=== PATIENT | male | born 1950 | race Asian ===

== ENCOUNTER 2021-10-18 12:11 | Inpatient (IN) | payer MEDICARE, MEDICAID ==
[~2021-10-18] VITALS: Ht 167.6 cm; Wt 72.7 kg
[2021-10-18 14:43] LABS: BASOPHILS % (AUTO) 0.6 % (0.0-2.0); EOSINOPHILS % (AUTO) 0.5 % (1.0-6.0); HEMATOCRIT 34.1 % (41-53); HEMOGLOBIN 11.1 g/dL (13.5-17.5); LYMPHOCYTES # (AUTO) 1.4 K/uL (1.0-4.8); LYMPHOCYTES % (AUTO) 18.7 % (22.0-44.0); MEAN CORPUSCULAR HEMOGLOBIN 30.2 pg (26.0-34.0); MEAN CORPUSCULAR HGB CONC 32.6 G/dL (31.0-37.0); MEAN CORPUSCULAR VOLUME 93 fL (80-100); MONOCYTES # (AUTO) 0.7 K/uL (0.1-1.0); MONOCYTES % (AUTO) 9.6 % (2.0-9.0); NEUTROPHILS # (AUTO) 5.4 K/uL (1.8-7.7); NEUTROPHILS % (AUTO) 70.6 % (40.0-70.0); PLATELET COUNT (AUTO) 265 K/uL (150-450); RED BLOOD CELL COUNT(AUTO) 3.69 MIL/uL (4.50-5.90)
[2021-10-18 15:05] LABS: PROTHROMBIN TIME 10.3 SEC (9.4-11.6)
[2021-10-18 15:07] LABS: CALCIUM, TOTAL 9.5 mg/dL (8.8-10.5); CREATININE 2.25 mg/dL (0.60-1.30)
[2021-10-18 15:15] LABS: ALBUMIN 3.2 g/dL (3.4-5.0); BILIRUBIN,TOTAL 9.4 mg/dL (0.1-1.0); TOTAL PROTEIN, SERUM 7.8 g/dL (6.4-8.2)
[2021-10-18 15:16] LABS: APPEARANCE,URINE CLOUDY (CLEAR); GLUCOSE, URINE (UA) NEGATIVE (NEGATIVE); KETONES,URINE TRACE mg/dL (NEGATIVE); LEUKOCYTE ESTERASE ,URINE SMALL (NEGATIVE); NITRATE,URINE NEGATIVE (NEGATIVE); OCCULT BLOOD,URINE NEGATIVE (NEGATIVE); PROTEIN,URINE POS 1+ (NEGATIVE)
[2021-10-18 15:36] LABS: BILIRUBIN,URINE PRELIM. POSITIVE (NEGATIVE)
[2021-10-18 15:54] LABS: BACTERIA,URINE Few /HPF (None Seen); RBC,URINE 0-2 /HPF (0-2); SQUAMOUS EPITHELIAL CELL,UR Few /LPF (None Seen)
[2021-10-18 17:13] LABS: COVID AG,FIA SOURCE NASOPHARYNGEAL
[2021-10-18 18:21] LABS: ALBUMIN 3.2 g/dL (3.4-5.0); BILIRUBIN,DIRECT 8.2 mg/dL (0.00-0.20); BILIRUBIN,TOTAL 9.5 mg/dL (0.1-1.0); TOTAL PROTEIN, SERUM 7.9 g/dL (6.4-8.2)
[2021-10-18] MEDS ORDERED: PIPERACILLIN/TAZO 3.375 GM/D5W 50 ML IV ONE (20:15)
[2021-10-18] MEDS ORDERED: MELA10CA PO (22:50)
[2021-10-18] MEDS ORDERED: CETI-450 PO (22:50)
[2021-10-18] MEDS ORDERED: MACR100 PO (22:50)
[2021-10-18] MEDS ORDERED: CIPR-278 PO (22:50)
[2021-10-18] MEDS ORDERED: [UNRECOGNIZED DRUG - CODE] PO (22:50)
[2021-10-18] MEDS ORDERED: LINA72CA PO (22:50)
[2021-10-18] MEDS ORDERED: TAMS-13 PO (22:50)
[2021-10-18] MEDS ORDERED: FOLI0.8T9 PO (22:50)
[2021-10-18] MEDS ORDERED: [UNRECOGNIZED DRUG - OTHER] PO PRN (23:15)
[2021-10-18] MEDS ORDERED: ALBUTEROL SULFATE 2.5 MG/0.5 ML NEB SOLUTION NEB PRN (23:15)
[2021-10-18] MEDS ORDERED: BISACODYL 10 MG RECTAL RECTAL SUPPOSITORY PR PRN (23:15)
[2021-10-18] MEDS ORDERED: ZOLPIDEM TARTRATE 5 MG TABLET PO PRN (23:15)
[2021-10-18] MEDS ORDERED: IPRATROPIUM BROMIDE 0.5 MG/2.5 ML NEB SOLUTION NEB PRN (23:15)
[2021-10-18] MEDS ORDERED: MAGNESIUM HYDROXIDE SUSPENSION 30 ML UDCUP PO PRN (23:15)
[2021-10-18] MEDS: HEPARIN SODIUM,PORCINE 5,000 UNITS/ML VIAL SQ SCH (23:50)
[2021-10-19] MEDS ORDERED: OMEP20 PO (01:22)
[2021-10-19] MEDS ORDERED: AMLO-258 PO (01:22)
[2021-10-19] MEDS ORDERED: VITA1TAB22 PO (01:22)
[2021-10-19] MEDS ORDERED: FOLI-130 PO (01:22)
[2021-10-19] MEDS ORDERED: [UNRECOGNIZED DRUG - CODE] PO (01:22)
[2021-10-19] MEDS ORDERED: GLUC500T12 PO (01:22)
[2021-10-19] MEDS ORDERED: CALC260T16 PO (01:22)
[2021-10-19] MEDS: LINACLOTIDE 72 MCG CAPSULE PO SCH (05:51)
[2021-10-19] MEDS ORDERED: MELATONIN 5 MG TABLET PO PRN (07:00)
[2021-10-19 07:34] LABS: BASOPHILS % (AUTO) 0.7 % (0.0-2.0); EOSINOPHILS % (AUTO) 0.9 % (1.0-6.0); HEMATOCRIT 29.8 % (41-53); HEMOGLOBIN 10.2 g/dL (13.5-17.5); LYMPHOCYTES # (AUTO) 0.9 K/uL (1.0-4.8); LYMPHOCYTES % (AUTO) 13.2 % (22.0-44.0); MEAN CORPUSCULAR HEMOGLOBIN 31.2 pg (26.0-34.0); MEAN CORPUSCULAR HGB CONC 34.3 G/dL (31.0-37.0); MEAN CORPUSCULAR VOLUME 91 fL (80-100); MONOCYTES # (AUTO) 0.7 K/uL (0.1-1.0); MONOCYTES % (AUTO) 10.8 % (2.0-9.0); NEUTROPHILS % (AUTO) 74.4 % (40.0-70.0); PLATELET COUNT (AUTO) 207 K/uL (150-450); RED BLOOD CELL COUNT(AUTO) 3.28 MIL/uL (4.50-5.90); RED CELL DISTRIBUTION WIDTH 17.4 % (11.5-14.5)
[2021-10-19 07:49] LABS: ALBUMIN 2.8 g/dL (3.4-5.0); BILIRUBIN,TOTAL 9.9 mg/dL (0.1-1.0); CALCIUM, TOTAL 9.2 mg/dL (8.8-10.5); CREATININE 2.15 mg/dL (0.60-1.30); POTASSIUM 4.4 mmol/L (3.5-5.1)
[2021-10-19] MEDS: HEPARIN SODIUM,PORCINE 5,000 UNITS/ML VIAL SQ SCH ×2 (07:55→17:08)
[2021-10-19] MEDS: PANTOPRAZOLE SODIUM 40 MG/VIAL IVP SCH (08:40)
[2021-10-19] MEDS: DiphenhydrAMINE HCL 25 MG/10 ML SOLUTION UDCUP PO SCH (08:50)
[2021-10-19] MEDS: FOLIC ACID 0.4 MG TABLET PO SCH (08:51)
[2021-10-19] MEDS: TAMSULOSIN HCL 0.4 MG CAPSULE PO SCH ×2 (08:51→21:33)
[2021-10-19] MEDS: CIPROFLOXACIN HCL 500 MG TABLET PO SCH ×2 (08:51→21:33)
[2021-10-19] MEDS: NITROFURANTOIN/NITROFURAN MAC 100 MG CAPSULE [MACROBID] PO SCH ×2 (08:52→23:29)
[2021-10-19] MEDS: CETIRIZINE HCL 10 MG TABLET PO SCH (08:52)
[2021-10-19] MEDS ORDERED: FOLIC ACID 0.8 MG PO SCH (09:00)
[2021-10-19] MEDS ORDERED: IOTHALAMATE MEGLUMINE 600 MG/ML 50 ML VIAL IVP ONE (11:43)
[2021-10-19] MEDS ORDERED: DEXAMETHASONE SOD PHOS 4 MG/ML VIAL IVP ONE (12:00)
[2021-10-19] MEDS ORDERED: ONDANSETRON HCL 4 MG/2 ML VIAL IVP ONE (12:00)
[2021-10-19] MEDS ORDERED: PROPOFOL 1% 20 ML VIAL IVP ONE (12:00)
[2021-10-19] MEDS ORDERED: LIDOCAINE/PF 2% 5 ML VIAL IM ONE (12:00)
[2021-10-19] MEDS ORDERED: MIDAZOLAM HCL 2 MG/2 ML VIAL IVP ONE ×2 (12:00)
[2021-10-19] MEDS ORDERED: SUCCINYLCHOLINE CHLORIDE 20 MG/ML 10 ML VIAL IVP ONE (12:00)
[2021-10-19] MEDS ORDERED: EPINEPHrine 1:10,000 [1 MG/10 ML] SYRINGE ONE (13:31)
[2021-10-19] MEDS ORDERED: SODIUM CHLORIDE 0.9% 1,000 ML IV ONE (14:00)
[2021-10-19] MEDS ORDERED: HYDROmorphone 2 MG/ML VIAL IVP PRN (15:00)
[2021-10-19] MEDS ORDERED: FentaNYL CITRATE PF 100 MCG/2 ML VIAL IVP PRN (15:00)
[2021-10-19] MEDS ORDERED: MEPERIDINE-PF 25 MG/ML VIAL IVP PRN (15:00)
[2021-10-19] MEDS ORDERED: PIPERACILLIN SODIUM/TAZOBACTAM 3.375 GM/VIAL TP ONE (15:30)
[2021-10-19] MEDS ORDERED: SODIUM CHLORIDE 0.9% 100 ML ONE (15:31)
[2021-10-19 16:45] VITALS: BP 143/83
[2021-10-19 19:22] VITALS: BP 124/83
[2021-10-19] MEDS: OXYGEN THERAPY IH SCH (20:00)
[2021-10-19] MEDS: PIPERACILLIN/TAZO 3.375 GM/D5W 50 ML IV SCH (20:54)
[2021-10-19] MEDS ORDERED: SODIUM CHLORIDE 0.9% 250 ML IV ONE (21:07)
[2021-10-19] MEDS: MELATONIN 5 MG TABLET PO PRN (23:30)
[2021-10-20] MEDS: DiphenhydrAMINE HCL 25 MG/10 ML SOLUTION UDCUP PO SCH ×4 (04:07→21:44)
[2021-10-20] MEDS: PIPERACILLIN/TAZO 3.375 GM/D5W 50 ML IV SCH ×3 (04:07→21:44)
[2021-10-20 04:18] VITALS: BP 139/71
[2021-10-20] MEDS: LINACLOTIDE 72 MCG CAPSULE PO SCH (05:39)
[2021-10-20] MEDS: OXYGEN THERAPY IH SCH ×2 (08:00→20:29)
[2021-10-20] MEDS: HEPARIN SODIUM,PORCINE 5,000 UNITS/ML VIAL SQ SCH ×4 (08:00→23:04)
[2021-10-20 08:38] VITALS: BP 142/78
[2021-10-20] MEDS: PANTOPRAZOLE SODIUM 40 MG/VIAL IVP SCH (09:07)
[2021-10-20 10:54] LABS: BASOPHILS % (AUTO) 0.5 % (0.0-2.0); EOSINOPHILS % (AUTO) 0 % (1.0-6.0); HEMATOCRIT 32.1 % (41-53); HEMOGLOBIN 10.5 g/dL (13.5-17.5); LYMPHOCYTES # (AUTO) 0.9 K/uL (1.0-4.8); LYMPHOCYTES % (AUTO) 9.9 % (22.0-44.0); MEAN CORPUSCULAR HEMOGLOBIN 30.4 pg (26.0-34.0); MEAN CORPUSCULAR HGB CONC 32.8 G/dL (31.0-37.0); MEAN CORPUSCULAR VOLUME 93 fL (80-100); MONOCYTES # (AUTO) 0.7 K/uL (0.1-1.0); MONOCYTES % (AUTO) 7.3 % (2.0-9.0); NEUTROPHILS # (AUTO) 7.4 K/uL (1.8-7.7); NEUTROPHILS % (AUTO) 82.3 % (40.0-70.0); PLATELET COUNT (AUTO) 228 K/uL (150-450); RED BLOOD CELL COUNT(AUTO) 3.46 MIL/uL (4.50-5.90); RED CELL DISTRIBUTION WIDTH 17.8 % (11.5-14.5)
[2021-10-20 11:25] LABS: ALBUMIN 2.9 g/dL (3.4-5.0); BILIRUBIN,TOTAL 7.8 mg/dL (0.1-1.0); CALCIUM, TOTAL 9.4 mg/dL (8.8-10.5); CREATININE 2.1 mg/dL (0.60-1.30); POTASSIUM 4.8 mmol/L (3.5-5.1); TOTAL PROTEIN, SERUM 7.4 g/dL (6.4-8.2)
[2021-10-20] MEDS ORDERED: SODIUM CHLORIDE 0.45% 1,000 ML IV ONE (11:45)
[2021-10-20] MEDS: NITROFURANTOIN/NITROFURAN MAC 100 MG CAPSULE [MACROBID] PO SCH ×2 (12:40→21:44)
[2021-10-20] MEDS: CETIRIZINE HCL 10 MG TABLET PO SCH (12:40)
[2021-10-20] MEDS: CIPROFLOXACIN HCL 500 MG TABLET PO SCH ×2 (12:40→21:44)
[2021-10-20] MEDS: TAMSULOSIN HCL 0.4 MG CAPSULE PO SCH ×2 (12:40→21:44)
[2021-10-20] MEDS: FOLIC ACID 0.4 MG TABLET PO SCH (12:41)
[2021-10-20 15:16] VITALS: BP 117/70
[2021-10-20] MEDS ORDERED: MORPHINE SULFATE 2 MG/ML SYRINGE IM PRN (19:45)
[2021-10-20 19:50] VITALS: BP 104/56
[2021-10-21] MEDS: PIPERACILLIN/TAZO 3.375 GM/D5W 50 ML IV SCH ×3 (03:51→20:32)
[2021-10-21 04:02] VITALS: BP 145/81
[2021-10-21] MEDS: LINACLOTIDE 72 MCG CAPSULE PO SCH (06:25)
[2021-10-21 07:29] LABS: BASOPHILS % (AUTO) 0.7 % (0.0-2.0); EOSINOPHILS % (AUTO) 0.6 % (1.0-6.0); HEMATOCRIT 26.9 % (41-53); HEMOGLOBIN 9.2 g/dL (13.5-17.5); LYMPHOCYTES # (AUTO) 0.9 K/uL (1.0-4.8); LYMPHOCYTES % (AUTO) 13.3 % (22.0-44.0); MEAN CORPUSCULAR HEMOGLOBIN 31.5 pg (26.0-34.0); MEAN CORPUSCULAR HGB CONC 34.2 G/dL (31.0-37.0); MEAN CORPUSCULAR VOLUME 92 fL (80-100); MONOCYTES # (AUTO) 0.7 K/uL (0.1-1.0); MONOCYTES % (AUTO) 10.8 % (2.0-9.0); NEUTROPHILS # (AUTO) 5.1 K/uL (1.8-7.7); NEUTROPHILS % (AUTO) 74.6 % (40.0-70.0); PLATELET COUNT (AUTO) 177 K/uL (150-450); RED BLOOD CELL COUNT(AUTO) 2.93 MIL/uL (4.50-5.90); RED CELL DISTRIBUTION WIDTH 17.6 % (11.5-14.5)
[2021-10-21 07:56] LABS: ALBUMIN 2.1 g/dL (3.4-5.0); BILIRUBIN,TOTAL 6.3 mg/dL (0.1-1.0); CALCIUM, TOTAL 8.5 mg/dL (8.8-10.5); CREATININE 2.33 mg/dL (0.60-1.30); POTASSIUM 4.3 mmol/L (3.5-5.1)
[2021-10-21] MEDS: HEPARIN SODIUM,PORCINE 5,000 UNITS/ML VIAL SQ SCH ×3 (08:00→23:59)
[2021-10-21] MEDS: OXYGEN THERAPY IH SCH ×2 (08:00→20:00)
[2021-10-21] MEDS: DiphenhydrAMINE HCL 25 MG/10 ML SOLUTION UDCUP PO SCH ×3 (09:00→20:32)
[2021-10-21 12:10] VITALS: BP 120/73
[2021-10-21] MEDS: MORPHINE SULFATE 2 MG/ML SYRINGE IVP PRN ×4 (12:13→22:30)
[2021-10-21] MEDS: NITROFURANTOIN/NITROFURAN MAC 100 MG CAPSULE [MACROBID] PO SCH ×2 (13:39→20:28)
[2021-10-21] MEDS: CIPROFLOXACIN HCL 500 MG TABLET PO SCH ×2 (13:39→20:28)
[2021-10-21] MEDS: PANTOPRAZOLE SODIUM 40 MG/VIAL IVP SCH (13:39)
[2021-10-21] MEDS: TAMSULOSIN HCL 0.4 MG CAPSULE PO SCH ×2 (13:39→20:28)
[2021-10-21] MEDS: CETIRIZINE HCL 10 MG TABLET PO SCH (13:39)
[2021-10-21] MEDS: FOLIC ACID 0.4 MG TABLET PO SCH (13:39)
[2021-10-21 16:44] VITALS: BP 111/68
[2021-10-21 21:12] VITALS: BP 122/69
[2021-10-22] MEDS: PIPERACILLIN/TAZO 3.375 GM/D5W 50 ML IV SCH ×3 (04:10→20:47)
[2021-10-22 05:03] VITALS: BP 123/72
[2021-10-22] MEDS: LINACLOTIDE 72 MCG CAPSULE PO SCH (07:06)
[2021-10-22 07:57] LABS: BASOPHILS % (AUTO) 0.4 % (0.0-2.0); EOSINOPHILS % (AUTO) 0.5 % (1.0-6.0); HEMOGLOBIN 9.4 g/dL (13.5-17.5); LYMPHOCYTES # (AUTO) 0.8 K/uL (1.0-4.8); MEAN CORPUSCULAR HGB CONC 33.5 G/dL (31.0-37.0); MEAN CORPUSCULAR VOLUME 92 fL (80-100); MONOCYTES # (AUTO) 0.9 K/uL (0.1-1.0); NEUTROPHILS # (AUTO) 6.1 K/uL (1.8-7.7); NEUTROPHILS % (AUTO) 78.1 % (40.0-70.0); PLATELET COUNT (AUTO) 170 K/uL (150-450); RED BLOOD CELL COUNT(AUTO) 3.03 MIL/uL (4.50-5.90); RED CELL DISTRIBUTION WIDTH 16.9 % (11.5-14.5)
[2021-10-22] MEDS: OXYGEN THERAPY IH SCH ×2 (08:00→20:46)
[2021-10-22 08:07] LABS: ALBUMIN 2.4 g/dL (3.4-5.0); BILIRUBIN,TOTAL 6.2 mg/dL (0.1-1.0); CALCIUM, TOTAL 8.7 mg/dL (8.8-10.5); CREATININE 2.24 mg/dL (0.60-1.30); POTASSIUM 3.9 mmol/L (3.5-5.1); TOTAL PROTEIN, SERUM 6.3 g/dL (6.4-8.2)
[2021-10-22 08:13] VITALS: BP 145/80
[2021-10-22] MEDS: CIPROFLOXACIN HCL 500 MG TABLET PO SCH ×2 (08:22→20:47)
[2021-10-22] MEDS: TAMSULOSIN HCL 0.4 MG CAPSULE PO SCH ×2 (08:22→20:48)
[2021-10-22] MEDS: PANTOPRAZOLE SODIUM 40 MG/VIAL IVP SCH (08:23)
[2021-10-22] MEDS: HEPARIN SODIUM,PORCINE 5,000 UNITS/ML VIAL SQ SCH ×3 (08:23→17:42)
[2021-10-22] MEDS: DiphenhydrAMINE HCL 25 MG/10 ML SOLUTION UDCUP PO SCH ×3 (10:36→20:47)
[2021-10-22] MEDS: NITROFURANTOIN/NITROFURAN MAC 100 MG CAPSULE [MACROBID] PO SCH ×2 (10:37→20:47)
[2021-10-22] MEDS: CETIRIZINE HCL 10 MG TABLET PO SCH (10:37)
[2021-10-22] MEDS: FOLIC ACID 0.4 MG TABLET PO SCH (10:37)
[2021-10-22 15:29] VITALS: BP 151/82
[2021-10-22] MEDS: HYDROCODONE/ACETAMINOPHEN 5-325 MG TABLET PO PRN (18:17)
[2021-10-22 20:13] VITALS: BP 148/91
[2021-10-22] MEDS: DEXTROSE 5%-0.45% SODIUM CHL 1,000 ML IV SCH (20:47)
[2021-10-22] MEDS: ACETAMINOPHEN 325 MG TABLET PO PRN (21:15)
[2021-10-22] MEDS: ALBUMIN HUMAN 25%-25GM/100ML 100 ML IV SCH (21:57)
[2021-10-23 02:09] LABS: CREATININE,URINE RANDOM 60.2 mg/dL (30.0-125.0)
[2021-10-23] MEDS: PIPERACILLIN/TAZO 3.375 GM/D5W 50 ML IV SCH ×2 (04:26→11:38)
[2021-10-23] MEDS: ALBUMIN HUMAN 25%-25GM/100ML 100 ML IV SCH ×4 (05:09→21:29)
[2021-10-23 05:18] VITALS: BP 135/79
[2021-10-23] MEDS: LINACLOTIDE 72 MCG CAPSULE PO SCH (05:45)
[2021-10-23] MEDS: HEPARIN SODIUM,PORCINE 5,000 UNITS/ML VIAL SQ SCH ×4 (08:00→23:32)
[2021-10-23] MEDS: OXYGEN THERAPY IH SCH ×2 (08:00→20:03)
[2021-10-23] MEDS: CETIRIZINE HCL 10 MG TABLET PO SCH (08:52)
[2021-10-23] MEDS: NITROFURANTOIN/NITROFURAN MAC 100 MG CAPSULE [MACROBID] PO SCH ×2 (08:52→20:11)
[2021-10-23] MEDS: DiphenhydrAMINE HCL 25 MG/10 ML SOLUTION UDCUP PO SCH ×3 (08:52→20:54)
[2021-10-23] MEDS: FOLIC ACID 0.4 MG TABLET PO SCH (08:52)
[2021-10-23] MEDS: CIPROFLOXACIN HCL 500 MG TABLET PO SCH ×2 (08:53→20:11)
[2021-10-23] MEDS: TAMSULOSIN HCL 0.4 MG CAPSULE PO SCH ×2 (08:53→20:11)
[2021-10-23] MEDS: PANTOPRAZOLE SODIUM 40 MG/VIAL IVP SCH (08:53)
[2021-10-23] MEDS: ACETAMINOPHEN 325 MG TABLET PO PRN ×2 (08:57→20:12)
[2021-10-23 09:07] VITALS: BP 140/76
[2021-10-23 11:33] LABS: BASOPHILS % (AUTO) 0.3 % (0.0-2.0); EOSINOPHILS % (AUTO) 1.3 % (1.0-6.0); HEMATOCRIT 24.2 % (41-53); HEMOGLOBIN 8.2 g/dL (13.5-17.5); LYMPHOCYTES # (AUTO) 0.5 K/uL (1.0-4.8); LYMPHOCYTES % (AUTO) 6.3 % (22.0-44.0); MEAN CORPUSCULAR HEMOGLOBIN 31.2 pg (26.0-34.0); MEAN CORPUSCULAR HGB CONC 33.7 G/dL (31.0-37.0); MEAN CORPUSCULAR VOLUME 93 fL (80-100); MONOCYTES # (AUTO) 0.9 K/uL (0.1-1.0); MONOCYTES % (AUTO) 11.5 % (2.0-9.0); NEUTROPHILS # (AUTO) 6.5 K/uL (1.8-7.7); NEUTROPHILS % (AUTO) 80.6 % (40.0-70.0); PLATELET COUNT (AUTO) 139 K/uL (150-450); RED BLOOD CELL COUNT(AUTO) 2.61 MIL/uL (4.50-5.90); RED CELL DISTRIBUTION WIDTH 16.4 % (11.5-14.5)
[2021-10-23 11:56] LABS: ALBUMIN 3.1 g/dL (3.4-5.0); BILIRUBIN,TOTAL 4.7 mg/dL (0.1-1.0); CALCIUM, TOTAL 8.8 mg/dL (8.8-10.5); CREATININE 2.4 mg/dL (0.60-1.30); POTASSIUM 3.9 mmol/L (3.5-5.1); TOTAL PROTEIN, SERUM 6.6 g/dL (6.4-8.2)
[2021-10-23] MEDS: DEXTROSE 5%-0.45% SODIUM CHL 1,000 ML IV SCH ×2 (15:03→23:51)
[2021-10-23 16:23] VITALS: BP 147/80
[2021-10-23 19:37] VITALS: BP 138/83
[2021-10-24 01:10] LABS: SODIUM,URINE RANDOM 68 mmol/l (20-110); UREA NITROGEN,URINE RANDOM 399 mg/dL (350-1000)
[2021-10-24] MEDS: ALBUMIN HUMAN 25%-25GM/100ML 100 ML IV SCH ×2 (03:47→10:16)
[2021-10-24 04:20] VITALS: BP 142/82
[2021-10-24 06:43] LABS: BASOPHILS % (AUTO) 0.3 % (0.0-2.0); EOSINOPHILS % (AUTO) 2.9 % (1.0-6.0); HEMATOCRIT 23.8 % (41-53); HEMOGLOBIN 8.1 g/dL (13.5-17.5); LYMPHOCYTES # (AUTO) 0.8 K/uL (1.0-4.8); LYMPHOCYTES % (AUTO) 10.6 % (22.0-44.0); MEAN CORPUSCULAR HEMOGLOBIN 31.5 pg (26.0-34.0); MEAN CORPUSCULAR VOLUME 93 fL (80-100); MONOCYTES # (AUTO) 0.9 K/uL (0.1-1.0); MONOCYTES % (AUTO) 11.6 % (2.0-9.0); NEUTROPHILS # (AUTO) 5.7 K/uL (1.8-7.7); NEUTROPHILS % (AUTO) 74.6 % (40.0-70.0); PLATELET COUNT (AUTO) 157 K/uL (150-450); RED BLOOD CELL COUNT(AUTO) 2.57 MIL/uL (4.50-5.90); RED CELL DISTRIBUTION WIDTH 16.2 % (11.5-14.5)
[2021-10-24 07:03] LABS: ALBUMIN 3.8 g/dL (3.4-5.0); BILIRUBIN,TOTAL 4.2 mg/dL (0.1-1.0); CALCIUM, TOTAL 9.2 mg/dL (8.8-10.5); CREATININE 2.25 mg/dL (0.60-1.30); POTASSIUM 3.6 mmol/L (3.5-5.1); TOTAL PROTEIN, SERUM 7.1 g/dL (6.4-8.2)
[2021-10-24 07:08] VITALS: BP 140/84
[2021-10-24] MEDS: OXYGEN THERAPY IH SCH ×2 (08:00→20:00)
[2021-10-24] MEDS: NITROFURANTOIN/NITROFURAN MAC 100 MG CAPSULE [MACROBID] PO SCH ×2 (08:26→20:10)
[2021-10-24] MEDS: TAMSULOSIN HCL 0.4 MG CAPSULE PO SCH ×2 (08:26→20:10)
[2021-10-24] MEDS: HEPARIN SODIUM,PORCINE 5,000 UNITS/ML VIAL SQ SCH ×3 (08:26→23:20)
[2021-10-24] MEDS: PANTOPRAZOLE SODIUM 40 MG/VIAL IVP SCH (08:26)
[2021-10-24] MEDS: LINACLOTIDE 72 MCG CAPSULE PO SCH (08:27)
[2021-10-24] MEDS: FOLIC ACID 0.4 MG TABLET PO SCH (08:27)
[2021-10-24] MEDS: CETIRIZINE HCL 10 MG TABLET PO SCH (08:28)
[2021-10-24] MEDS: DiphenhydrAMINE HCL 25 MG/10 ML SOLUTION UDCUP PO SCH ×4 (08:30→20:24)
[2021-10-24] MEDS: CIPROFLOXACIN HCL 500 MG TABLET PO SCH ×2 (08:30→20:11)
[2021-10-24] MEDS ORDERED: SODIUM CL IRRIG SOLN BOTTLE 250 ML IRRIG ONE (10:12)
[2021-10-24] MEDS: DEXTROSE 5%-0.45% SODIUM CHL 1,000 ML IV SCH (13:51)
[2021-10-24 15:07] VITALS: BP 131/72
[2021-10-24] MEDS: ACETAMINOPHEN 325 MG TABLET PO PRN (15:37)
[2021-10-24 19:55] VITALS: BP 119/67
[2021-10-24] MEDS: MELATONIN 5 MG TABLET PO PRN (20:14)
[2021-10-25 04:15] VITALS: BP 142/82
[2021-10-25] MEDS: LINACLOTIDE 72 MCG CAPSULE PO SCH (05:24)
[2021-10-25] MEDS: OXYGEN THERAPY IH SCH ×2 (08:00→20:00)
[2021-10-25] MEDS: CETIRIZINE HCL 10 MG TABLET PO SCH (08:44)
[2021-10-25] MEDS: FOLIC ACID 0.4 MG TABLET PO SCH (08:44)
[2021-10-25] MEDS: PANTOPRAZOLE SODIUM 40 MG/VIAL IVP SCH (08:44)
[2021-10-25] MEDS: NITROFURANTOIN/NITROFURAN MAC 100 MG CAPSULE [MACROBID] PO SCH ×2 (08:44→20:36)
[2021-10-25] MEDS: DiphenhydrAMINE HCL 25 MG/10 ML SOLUTION UDCUP PO SCH ×4 (08:44→20:37)
[2021-10-25] MEDS: TAMSULOSIN HCL 0.4 MG CAPSULE PO SCH ×2 (08:44→20:36)
[2021-10-25] MEDS: HEPARIN SODIUM,PORCINE 5,000 UNITS/ML VIAL SQ SCH ×2 (08:45→16:59)
[2021-10-25] MEDS: CIPROFLOXACIN HCL 500 MG TABLET PO SCH ×2 (08:46→20:36)
[2021-10-25 08:47] VITALS: BP 133/78
[2021-10-25 08:55] LABS: BASOPHILS % (AUTO) 0.5 % (0.0-2.0); EOSINOPHILS % (AUTO) 4.3 % (1.0-6.0); HEMATOCRIT 28.3 % (41-53); HEMOGLOBIN 9.6 g/dL (13.5-17.5); LYMPHOCYTES # (AUTO) 0.7 K/uL (1.0-4.8); LYMPHOCYTES % (AUTO) 9.8 % (22.0-44.0); MEAN CORPUSCULAR HEMOGLOBIN 31.5 pg (26.0-34.0); MEAN CORPUSCULAR HGB CONC 33.9 G/dL (31.0-37.0); MEAN CORPUSCULAR VOLUME 93 fL (80-100); MONOCYTES # (AUTO) 0.8 K/uL (0.1-1.0); NEUTROPHILS # (AUTO) 5.6 K/uL (1.8-7.7); NEUTROPHILS % (AUTO) 74.4 % (40.0-70.0); PLATELET COUNT (AUTO) 200 K/uL (150-450); RED BLOOD CELL COUNT(AUTO) 3.04 MIL/uL (4.50-5.90); RED CELL DISTRIBUTION WIDTH 16.8 % (11.5-14.5)
[2021-10-25 09:23] LABS: ALBUMIN 4.1 g/dL (3.4-5.0); BILIRUBIN,TOTAL 3.8 mg/dL (0.1-1.0); CALCIUM, TOTAL 9.8 mg/dL (8.8-10.5); CREATININE 2.51 mg/dL (0.60-1.30); TOTAL PROTEIN, SERUM 7.9 g/dL (6.4-8.2)
[2021-10-25 16:41] VITALS: BP 130/76
[2021-10-25 20:37] VITALS: BP 131/75
[2021-10-25] MEDS: HYDROCODONE/ACETAMINOPHEN 5-325 MG TABLET PO PRN (20:44)
[2021-10-26 05:12] VITALS: BP 131/69
[2021-10-26] MEDS: LINACLOTIDE 72 MCG CAPSULE PO SCH (06:30)
[2021-10-26] MEDS: OXYGEN THERAPY IH SCH ×2 (08:00→20:58)
[2021-10-26] MEDS: HEPARIN SODIUM,PORCINE 5,000 UNITS/ML VIAL SQ SCH ×3 (08:00→15:43)
[2021-10-26 08:05] VITALS: BP 140/70
[2021-10-26] MEDS: PANTOPRAZOLE SODIUM 40 MG/VIAL IVP SCH (08:28)
[2021-10-26] MEDS: FOLIC ACID 0.4 MG TABLET PO SCH (08:28)
[2021-10-26] MEDS: HYDROCODONE/ACETAMINOPHEN 5-325 MG TABLET PO PRN ×2 (08:28→20:57)
[2021-10-26] MEDS: TAMSULOSIN HCL 0.4 MG CAPSULE PO SCH ×2 (08:28→20:51)
[2021-10-26] MEDS: NITROFURANTOIN/NITROFURAN MAC 100 MG CAPSULE [MACROBID] PO SCH ×2 (08:29→20:51)
[2021-10-26] MEDS: CIPROFLOXACIN HCL 500 MG TABLET PO SCH ×2 (08:29→20:51)
[2021-10-26] MEDS: SODIUM CHLORIDE 0.45% 1,000 ML IV SCH (08:29)
[2021-10-26] MEDS: DiphenhydrAMINE HCL 25 MG/10 ML SOLUTION UDCUP PO SCH ×3 (08:55→20:51)
[2021-10-26] MEDS: CETIRIZINE HCL 10 MG TABLET PO SCH (08:56)
[2021-10-26 15:15] VITALS: BP 126/70
[2021-10-26 19:36] VITALS: BP 133/76
[2021-10-27 00:39] VITALS: BP 100/62
[2021-10-27] MEDS: SODIUM CHLORIDE 0.45% 1,000 ML IV SCH (00:46)
[2021-10-27] MEDS: ONDANSETRON HCL 4 MG/2 ML VIAL IVP PRN (00:46)
[2021-10-27 04:10] VITALS: BP 113/65
[2021-10-27] MEDS: LINACLOTIDE 72 MCG CAPSULE PO SCH (06:40)
[2021-10-27] MEDS: OXYGEN THERAPY IH SCH ×2 (08:00→20:43)
[2021-10-27] MEDS: HEPARIN SODIUM,PORCINE 5,000 UNITS/ML VIAL SQ SCH ×4 (08:00→23:11)
[2021-10-27] MEDS: NITROFURANTOIN/NITROFURAN MAC 100 MG CAPSULE [MACROBID] PO SCH (08:36)
[2021-10-27] MEDS: CIPROFLOXACIN HCL 500 MG TABLET PO SCH ×2 (08:36→20:42)
[2021-10-27] MEDS: PANTOPRAZOLE SODIUM 40 MG/VIAL IVP SCH (08:36)
[2021-10-27] MEDS: CETIRIZINE HCL 10 MG TABLET PO SCH (08:36)
[2021-10-27] MEDS: FOLIC ACID 0.4 MG TABLET PO SCH (08:37)
[2021-10-27] MEDS: TAMSULOSIN HCL 0.4 MG CAPSULE PO SCH ×2 (08:39→20:42)
[2021-10-27] MEDS: DiphenhydrAMINE HCL 25 MG/10 ML SOLUTION UDCUP PO SCH ×3 (08:51→20:43)
[2021-10-27 09:12] VITALS: BP 123/76
[2021-10-27 15:45] VITALS: BP 136/72
[2021-10-27 16:05] LABS: CALCIUM, TOTAL 9.4 mg/dL (8.8-10.5); CREATININE 3.25 mg/dL (0.60-1.30); PHOSPHORUS 4.5 mg/dL (2.5-4.9)
[2021-10-27 20:21] VITALS: BP 122/75
[2021-10-27] MEDS: HYDROCODONE/ACETAMINOPHEN 5-325 MG TABLET PO PRN (20:43)
[2021-10-27] MEDS: MELATONIN 5 MG TABLET PO PRN (20:51)
[2021-10-28 03:54] VITALS: BP 112/59
[2021-10-28] MEDS: LINACLOTIDE 72 MCG CAPSULE PO SCH (05:34)
[2021-10-28 07:21] LABS: BASOPHILS % (AUTO) 1.1 % (0.0-2.0); EOSINOPHILS % (AUTO) 3.5 % (1.0-6.0); HEMATOCRIT 25.5 % (41-53); HEMOGLOBIN 8.8 g/dL (13.5-17.5); LYMPHOCYTES # (AUTO) 0.9 K/uL (1.0-4.8); LYMPHOCYTES % (AUTO) 13.6 % (22.0-44.0); MEAN CORPUSCULAR HEMOGLOBIN 32.1 pg (26.0-34.0); MEAN CORPUSCULAR HGB CONC 34.5 G/dL (31.0-37.0); MEAN CORPUSCULAR VOLUME 93 fL (80-100); MONOCYTES # (AUTO) 1.4 K/uL (0.1-1.0); MONOCYTES % (AUTO) 20.3 % (2.0-9.0); NEUTROPHILS # (AUTO) 4.2 K/uL (1.8-7.7); NEUTROPHILS % (AUTO) 61.5 % (40.0-70.0); PLATELET COUNT (AUTO) 179 K/uL (150-450); RED BLOOD CELL COUNT(AUTO) 2.75 MIL/uL (4.50-5.90); RED CELL DISTRIBUTION WIDTH 16.3 % (11.5-14.5)
[2021-10-28 07:36] LABS: ALBUMIN 3.3 g/dL (3.4-5.0); BILIRUBIN,TOTAL 3.2 mg/dL (0.1-1.0); CALCIUM, TOTAL 9.1 mg/dL (8.8-10.5); CREATININE 3.33 mg/dL (0.60-1.30); MAGNESIUM 2.1 mg/dL (1.80-2.40); PHOSPHORUS 4.8 mg/dL (2.5-4.9); POTASSIUM 4.8 mmol/L (3.5-5.1); TOTAL PROTEIN, SERUM 6.8 g/dL (6.4-8.2)
[2021-10-28 08:19] VITALS: BP 137/81
[2021-10-28] MEDS: FOLIC ACID 0.4 MG TABLET PO SCH (08:47)
[2021-10-28] MEDS: CIPROFLOXACIN HCL 500 MG TABLET PO SCH (08:47)
[2021-10-28] MEDS: CETIRIZINE HCL 10 MG TABLET PO SCH (08:47)
[2021-10-28] MEDS: TAMSULOSIN HCL 0.4 MG CAPSULE PO SCH ×2 (08:47→19:58)
[2021-10-28] MEDS: HEPARIN SODIUM,PORCINE 5,000 UNITS/ML VIAL SQ SCH ×2 (08:48→15:57)
[2021-10-28] MEDS: DiphenhydrAMINE HCL 25 MG/10 ML SOLUTION UDCUP PO SCH ×3 (08:53→19:59)
[2021-10-28 11:43] LABS: CREATININE,URINE RANDOM 50.3 mg/dL (30.0-125.0)
[2021-10-28 11:49] LABS: APPEARANCE,URINE CLEAR (CLEAR); BILIRUBIN,URINE NEGATIVE (NEGATIVE); GLUCOSE, URINE (UA) NEGATIVE (NEGATIVE); KETONES,URINE NEGATIVE (NEGATIVE); LEUKOCYTE ESTERASE ,URINE NEGATIVE (NEGATIVE); NITRATE,URINE NEGATIVE (NEGATIVE); OCCULT BLOOD,URINE NEGATIVE (NEGATIVE); PROTEIN,URINE TRACE (NEGATIVE); UROBILINOGEN,URINE 0.2 mg/dL (<=1.0)
[2021-10-28 12:12] LABS: BACTERIA,URINE None Seen /HPF (None Seen); RBC,URINE 0-2 /HPF (0-2); WBC,URINE None Seen /HPF (0-5)
[2021-10-28] MEDS: HYDROCODONE/ACETAMINOPHEN 5-325 MG TABLET PO PRN (12:45)
[2021-10-28] MEDS: ALBUMIN HUMAN 25%-25GM/100ML 100 ML IV SCH ×2 (15:03→19:58)
[2021-10-28 16:15] VITALS: BP 129/76
[2021-10-28] MEDS: OXYGEN THERAPY IH SCH (20:00)
[2021-10-28 20:05] VITALS: BP 114/60
[2021-10-29] MEDS: ALBUMIN HUMAN 25%-25GM/100ML 100 ML IV SCH ×2 (01:50→06:34)
[2021-10-29] MEDS: MELATONIN 5 MG TABLET PO PRN (02:00)
[2021-10-29 04:33] VITALS: BP 129/69
[2021-10-29] MEDS: LINACLOTIDE 72 MCG CAPSULE PO SCH (06:34)
[2021-10-29 07:10] LABS: CALCIUM, TOTAL 8.9 mg/dL (8.8-10.5); CREATININE 3.57 mg/dL (0.60-1.30); PHOSPHORUS 4.6 mg/dL (2.5-4.9); POTASSIUM 4.4 mmol/L (3.5-5.1)
[2021-10-29 07:53] VITALS: BP 112/70
[2021-10-29] MEDS: OXYGEN THERAPY IH SCH ×2 (08:00→20:00)
[2021-10-29] MEDS: CETIRIZINE HCL 10 MG TABLET PO SCH (08:35)
[2021-10-29] MEDS: TAMSULOSIN HCL 0.4 MG CAPSULE PO SCH ×2 (08:35→20:46)
[2021-10-29] MEDS: FOLIC ACID 0.4 MG TABLET PO SCH (08:35)
[2021-10-29] MEDS: DiphenhydrAMINE HCL 25 MG/10 ML SOLUTION UDCUP PO SCH ×3 (08:35→20:46)
[2021-10-29] MEDS: HEPARIN SODIUM,PORCINE 5,000 UNITS/ML VIAL SQ SCH ×2 (15:55→23:14)
[2021-10-29 15:57] VITALS: BP 122/62
[2021-10-29 20:28] VITALS: BP 125/73
[2021-10-30 04:40] VITALS: BP 118/70
[2021-10-30] MEDS: LINACLOTIDE 72 MCG CAPSULE PO SCH (05:22)
[2021-10-30 06:43] LABS: BASOPHILS % (AUTO) 0.9 % (0.0-2.0); EOSINOPHILS % (AUTO) 2.5 % (1.0-6.0); HEMATOCRIT 23.7 % (41-53); HEMOGLOBIN 8.1 g/dL (13.5-17.5); LYMPHOCYTES # (AUTO) 1.5 K/uL (1.0-4.8); LYMPHOCYTES % (AUTO) 18.5 % (22.0-44.0); MEAN CORPUSCULAR HEMOGLOBIN 31.9 pg (26.0-34.0); MEAN CORPUSCULAR HGB CONC 34.3 G/dL (31.0-37.0); MEAN CORPUSCULAR VOLUME 93 fL (80-100); MONOCYTES % (AUTO) 12.4 % (2.0-9.0); NEUTROPHILS # (AUTO) 5.3 K/uL (1.8-7.7); NEUTROPHILS % (AUTO) 65.7 % (40.0-70.0); PLATELET COUNT (AUTO) 217 K/uL (150-450); RED BLOOD CELL COUNT(AUTO) 2.55 MIL/uL (4.50-5.90); RED CELL DISTRIBUTION WIDTH 16.1 % (11.5-14.5)
[2021-10-30 07:14] LABS: CALCIUM, TOTAL 9.5 mg/dL (8.8-10.5); CREATININE 3.94 mg/dL (0.60-1.30); MAGNESIUM 2.3 mg/dL (1.80-2.40); PHOSPHORUS 4.2 mg/dL (2.5-4.9); POTASSIUM 4.9 mmol/L (3.5-5.1)
[2021-10-30 07:56] VITALS: BP 120/65
[2021-10-30] MEDS: OXYGEN THERAPY IH SCH ×2 (08:00→20:00)
[2021-10-30] MEDS: DiphenhydrAMINE HCL 25 MG/10 ML SOLUTION UDCUP PO SCH ×3 (09:00→20:38)
[2021-10-30] MEDS: FOLIC ACID 0.4 MG TABLET PO SCH (09:10)
[2021-10-30] MEDS: TAMSULOSIN HCL 0.4 MG CAPSULE PO SCH ×2 (09:10→20:36)
[2021-10-30] MEDS: ONDANSETRON HCL 4 MG/2 ML VIAL IVP PRN (09:10)
[2021-10-30] MEDS: CETIRIZINE HCL 10 MG TABLET PO SCH (09:10)
[2021-10-30] MEDS: HEPARIN SODIUM,PORCINE 5,000 UNITS/ML VIAL SQ SCH ×3 (09:15→20:37)
[2021-10-30 16:29] VITALS: BP 100/53
[2021-10-30 20:13] VITALS: BP 109/52
[2021-10-30] MEDS: CITRIC ACID/SODIUM CITRATE 30 ML SOLUTION UDCUP PO SCH (20:36)
[2021-10-31] MEDS: LINACLOTIDE 72 MCG CAPSULE PO SCH (05:56)
[2021-10-31 06:32] LABS: CALCIUM, TOTAL 9.3 mg/dL (8.8-10.5); CREATININE 4.95 mg/dL (0.60-1.30); POTASSIUM 4.8 mmol/L (3.5-5.1)
[2021-10-31] MEDS: OXYGEN THERAPY IH SCH ×2 (08:00→20:00)
[2021-10-31 08:05] VITALS: BP 110/56
[2021-10-31] MEDS: TAMSULOSIN HCL 0.4 MG CAPSULE PO SCH ×2 (08:15→20:00)
[2021-10-31] MEDS: FOLIC ACID 0.4 MG TABLET PO SCH (08:15)
[2021-10-31] MEDS: CETIRIZINE HCL 10 MG TABLET PO SCH (08:15)
[2021-10-31] MEDS: HEPARIN SODIUM,PORCINE 5,000 UNITS/ML VIAL SQ SCH (08:16)
[2021-10-31] MEDS: DiphenhydrAMINE HCL 25 MG/10 ML SOLUTION UDCUP PO SCH ×3 (08:17→20:00)
[2021-10-31] MEDS: CITRIC ACID/SODIUM CITRATE 30 ML SOLUTION UDCUP PO SCH ×2 (08:51→20:00)
[2021-10-31 16:04] VITALS: BP 103/51
[2021-10-31] MEDS: MELATONIN 5 MG TABLET PO PRN (20:01)
[2021-10-31 20:31] VITALS: BP 113/57
[2021-11-01 05:03] VITALS: BP 104/60
[2021-11-01] MEDS: LINACLOTIDE 72 MCG CAPSULE PO SCH (06:14)
[2021-11-01] MEDS: OXYGEN THERAPY IH SCH ×2 (08:00→20:00)
[2021-11-01 08:12] VITALS: BP 110/60
[2021-11-01] MEDS: DiphenhydrAMINE HCL 25 MG/10 ML SOLUTION UDCUP PO SCH ×3 (09:00→20:03)
[2021-11-01 10:17] LABS: PROTHROMBIN TIME 10.8 SEC (9.4-11.6)
[2021-11-01] MEDS ORDERED: MIDAZOLAM HCL 2 MG/2 ML VIAL ONE (10:32)
[2021-11-01] MEDS ORDERED: NALOXONE HCL 0.4 MG/ML VIAL ONE (10:32)
[2021-11-01] MEDS ORDERED: FentaNYL CITRATE PF 100 MCG/2 ML VIAL ONE (10:32)
[2021-11-01] MEDS ORDERED: FLUMAZENIL 0.1 MG/ML 5 ML VIAL IVP ONE (10:32)
[2021-11-01] MEDS ORDERED: FentaNYL CITRATE PF 100 MCG/2 ML VIAL IVP ONE ×2 (11:30→12:30)
[2021-11-01] MEDS ORDERED: MIDAZOLAM HCL 2 MG/2 ML VIAL IVP ONE ×2 (11:30→11:35)
[2021-11-01] MEDS: FOLIC ACID 0.4 MG TABLET PO SCH (12:45)
[2021-11-01] MEDS: TAMSULOSIN HCL 0.4 MG CAPSULE PO SCH ×2 (12:45→20:02)
[2021-11-01] MEDS: CETIRIZINE HCL 10 MG TABLET PO SCH (12:45)
[2021-11-01] MEDS: CITRIC ACID/SODIUM CITRATE 30 ML SOLUTION UDCUP PO SCH ×2 (12:46→20:02)
[2021-11-01] MEDS: EPOETIN ALFA 10,000 UNITS/ML VIAL SQ SCH (13:57)
[2021-11-01 16:30] VITALS: BP 110/56
[2021-11-01 19:55] VITALS: BP 120/56
[2021-11-01] MEDS: FAMOTIDINE 20 MG TABLET PO SCH (20:02)
[2021-11-01] MEDS: MELATONIN 5 MG TABLET PO PRN (20:03)
[2021-11-02] VITALS (18 sets, daily range): BP systolic 98–121; BP diastolic 51–95
[2021-11-02] MEDS: LINACLOTIDE 72 MCG CAPSULE PO SCH ×2 (05:35→05:42)
[2021-11-02 07:05] LABS: BASOPHILS % (AUTO) 0.7 % (0.0-2.0); EOSINOPHILS % (AUTO) 3.1 % (1.0-6.0); LYMPHOCYTES # (AUTO) 1.3 K/uL (1.0-4.8); LYMPHOCYTES % (AUTO) 16.6 % (22.0-44.0); MEAN CORPUSCULAR HEMOGLOBIN 31.3 pg (26.0-34.0); MEAN CORPUSCULAR HGB CONC 33.9 G/dL (31.0-37.0); MEAN CORPUSCULAR VOLUME 92 fL (80-100); MONOCYTES # (AUTO) 0.7 K/uL (0.1-1.0); MONOCYTES % (AUTO) 8.8 % (2.0-9.0); NEUTROPHILS # (AUTO) 5.5 K/uL (1.8-7.7); NEUTROPHILS % (AUTO) 70.8 % (40.0-70.0); PLATELET COUNT (AUTO) 217 K/uL (150-450); RED BLOOD CELL COUNT(AUTO) 2.05 MIL/uL (4.50-5.90); RED CELL DISTRIBUTION WIDTH 16.1 % (11.5-14.5)
[2021-11-02 07:10] LABS: CALCIUM, TOTAL 8.8 mg/dL (8.8-10.5); CREATININE 5.14 mg/dL (0.60-1.30); MAGNESIUM 2.5 mg/dL (1.80-2.40); PHOSPHORUS 4.9 mg/dL (2.5-4.9); POTASSIUM 5.4 mmol/L (3.5-5.1)
[2021-11-02] MEDS: OXYGEN THERAPY IH SCH ×2 (08:00→20:00)
[2021-11-02 08:01] LABS: HEMOGLOBIN 6.4 g/dL (13.5-17.5)
[2021-11-02 08:02] LABS: HEMATOCRIT 18.9 % (41-53)
[2021-11-02] MEDS: DiphenhydrAMINE HCL 25 MG/10 ML SOLUTION UDCUP PO SCH ×3 (09:00→21:00)
[2021-11-02] MEDS: TAMSULOSIN HCL 0.4 MG CAPSULE PO SCH ×2 (09:24→21:02)
[2021-11-02] MEDS: CITRIC ACID/SODIUM CITRATE 30 ML SOLUTION UDCUP PO SCH ×2 (09:24→21:02)
[2021-11-02] MEDS: FOLIC ACID 0.4 MG TABLET PO SCH (09:24)
[2021-11-02] MEDS: CETIRIZINE HCL 10 MG TABLET PO SCH (09:24)
[2021-11-02] MEDS: FAMOTIDINE 20 MG TABLET PO SCH ×2 (09:24→21:02)
[2021-11-02] MEDS ORDERED: SODIUM CHLORIDE 0.9% 1,000 ML ONE (09:38)
[2021-11-03] MEDS: LINACLOTIDE 72 MCG CAPSULE PO SCH (04:17)
[2021-11-03 05:09] VITALS: BP 115/53
[2021-11-03] MEDS: OXYGEN THERAPY IH SCH ×2 (08:00→20:50)
[2021-11-03 08:29] VITALS: BP 123/62
[2021-11-03] MEDS: EPOETIN ALFA 10,000 UNITS/ML VIAL SQ SCH (08:38)
[2021-11-03] MEDS: DiphenhydrAMINE HCL 25 MG/10 ML SOLUTION UDCUP PO SCH ×4 (09:00→20:51)
[2021-11-03 09:03] LABS: BASOPHILS % (AUTO) 0.9 % (0.0-2.0); EOSINOPHILS % (AUTO) 2.6 % (1.0-6.0); HEMATOCRIT 24.4 % (41-53); HEMOGLOBIN 8.4 g/dL (13.5-17.5); LYMPHOCYTES # (AUTO) 1.3 K/uL (1.0-4.8); LYMPHOCYTES % (AUTO) 16.1 % (22.0-44.0); MEAN CORPUSCULAR HEMOGLOBIN 31.1 pg (26.0-34.0); MEAN CORPUSCULAR HGB CONC 34.7 G/dL (31.0-37.0); MEAN CORPUSCULAR VOLUME 90 fL (80-100); MONOCYTES # (AUTO) 0.9 K/uL (0.1-1.0); MONOCYTES % (AUTO) 10.7 % (2.0-9.0); NEUTROPHILS # (AUTO) 5.6 K/uL (1.8-7.7); NEUTROPHILS % (AUTO) 69.7 % (40.0-70.0); PLATELET COUNT (AUTO) 196 K/uL (150-450); RED BLOOD CELL COUNT(AUTO) 2.71 MIL/uL (4.50-5.90); RED CELL DISTRIBUTION WIDTH 16.5 % (11.5-14.5)
[2021-11-03 09:19] LABS: CALCIUM, TOTAL 8.9 mg/dL (8.8-10.5); CREATININE 4.99 mg/dL (0.60-1.30); MAGNESIUM 2.5 mg/dL (1.80-2.40); PHOSPHORUS 4.8 mg/dL (2.5-4.9); POTASSIUM 5.5 mmol/L (3.5-5.1)
[2021-11-03] MEDS: FOLIC ACID 0.4 MG TABLET PO SCH (10:48)
[2021-11-03] MEDS: CETIRIZINE HCL 10 MG TABLET PO SCH (10:48)
[2021-11-03] MEDS: TAMSULOSIN HCL 0.4 MG CAPSULE PO SCH ×2 (10:48→20:45)
[2021-11-03] MEDS: FAMOTIDINE 20 MG TABLET PO SCH ×2 (10:48→20:45)
[2021-11-03] MEDS: CITRIC ACID/SODIUM CITRATE 30 ML SOLUTION UDCUP PO SCH ×2 (10:48→20:45)
[2021-11-03] MEDS ORDERED: SODIUM ZIRCONIUM CYCLOSILICATE 5 GM POWDER PACKET PO ONE (11:30)
[2021-11-03 16:58] VITALS: BP 104/72
[2021-11-03 19:33] VITALS: BP 125/76
[2021-11-03] MEDS: MELATONIN 5 MG TABLET PO PRN (20:45)
[2021-11-04 05:07] VITALS: BP 106/52
[2021-11-04] MEDS: LINACLOTIDE 72 MCG CAPSULE PO SCH ×2 (06:30→06:58)
[2021-11-04 06:47] LABS: BASOPHILS % (AUTO) 0.5 % (0.0-2.0); EOSINOPHILS % (AUTO) 3.7 % (1.0-6.0); HEMOGLOBIN 8.2 g/dL (13.5-17.5); LYMPHOCYTES # (AUTO) 1.3 K/uL (1.0-4.8); LYMPHOCYTES % (AUTO) 17.1 % (22.0-44.0); MEAN CORPUSCULAR HEMOGLOBIN 31.2 pg (26.0-34.0); MEAN CORPUSCULAR HGB CONC 35.5 G/dL (31.0-37.0); MEAN CORPUSCULAR VOLUME 88 fL (80-100); MONOCYTES # (AUTO) 0.8 K/uL (0.1-1.0); NEUTROPHILS # (AUTO) 5.2 K/uL (1.8-7.7); NEUTROPHILS % (AUTO) 68.7 % (40.0-70.0); PLATELET COUNT (AUTO) 202 K/uL (150-450); RED BLOOD CELL COUNT(AUTO) 2.61 MIL/uL (4.50-5.90); RED CELL DISTRIBUTION WIDTH 16.3 % (11.5-14.5)
[2021-11-04 06:58] LABS: CALCIUM, TOTAL 9.2 mg/dL (8.8-10.5); CREATININE 4.9 mg/dL (0.60-1.30); MAGNESIUM 2.5 mg/dL (1.80-2.40); POTASSIUM 4.9 mmol/L (3.5-5.1)
[2021-11-04] MEDS: OXYGEN THERAPY IH SCH ×2 (07:56→20:08)
[2021-11-04] MEDS: CETIRIZINE HCL 10 MG TABLET PO SCH (09:00)
[2021-11-04] MEDS: DiphenhydrAMINE HCL 25 MG/10 ML SOLUTION UDCUP PO SCH ×3 (09:00→20:15)
[2021-11-04] MEDS: FAMOTIDINE 20 MG TABLET PO SCH ×2 (09:21→20:08)
[2021-11-04] MEDS: FOLIC ACID 0.4 MG TABLET PO SCH (09:22)
[2021-11-04] MEDS: TAMSULOSIN HCL 0.4 MG CAPSULE PO SCH ×2 (09:22→20:08)
[2021-11-04] MEDS: CITRIC ACID/SODIUM CITRATE 30 ML SOLUTION UDCUP PO SCH ×2 (09:23→20:08)
[2021-11-04 09:59] VITALS: BP 92/51
[2021-11-04] MEDS: SODIUM ZIRCONIUM CYCLOSILICATE 5 GM POWDER PACKET PO SCH (11:08)
[2021-11-04 16:19] VITALS: BP 130/67
[2021-11-04] MEDS: ACETAMINOPHEN 325 MG TABLET PO PRN (17:14)
[2021-11-04 19:55] VITALS: BP 130/80
[2021-11-04] MEDS: MELATONIN 5 MG TABLET PO PRN (20:09)
[2021-11-05 04:45] VITALS: BP 121/65
[2021-11-05] MEDS: LINACLOTIDE 72 MCG CAPSULE PO SCH (05:58)
[2021-11-05 06:47] LABS: CALCIUM, TOTAL 8.8 mg/dL (8.8-10.5); CREATININE 4.9 mg/dL (0.60-1.30); MAGNESIUM 2.5 mg/dL (1.80-2.40); PHOSPHORUS 4.5 mg/dL (2.5-4.9); POTASSIUM 4.8 mmol/L (3.5-5.1)
[2021-11-05 07:17] VITALS: BP 124/68
[2021-11-05] MEDS: OXYGEN THERAPY IH SCH ×2 (08:00→20:39)
[2021-11-05] MEDS: CITRIC ACID/SODIUM CITRATE 30 ML SOLUTION UDCUP PO SCH ×2 (09:00→20:37)
[2021-11-05] MEDS: DiphenhydrAMINE HCL 25 MG/10 ML SOLUTION UDCUP PO SCH ×3 (09:00→20:38)
[2021-11-05] MEDS: FAMOTIDINE 20 MG TABLET PO SCH ×2 (10:09→20:37)
[2021-11-05] MEDS: TAMSULOSIN HCL 0.4 MG CAPSULE PO SCH ×2 (10:09→20:37)
[2021-11-05] MEDS: FOLIC ACID 0.4 MG TABLET PO SCH (10:09)
[2021-11-05] MEDS: CETIRIZINE HCL 10 MG TABLET PO SCH (10:09)
[2021-11-05] MEDS: SODIUM ZIRCONIUM CYCLOSILICATE 5 GM POWDER PACKET PO SCH (10:10)
[2021-11-05] MEDS: EPOETIN ALFA 10,000 UNITS/ML VIAL SQ SCH (10:11)
[2021-11-05 15:05] VITALS: BP 138/79
[2021-11-05] MEDS ORDERED: SODIUM CHLORIDE 0.9% 1,000 ML ONE (18:33)
[2021-11-05 20:31] VITALS: BP 114/60
[2021-11-05] MEDS: MELATONIN 5 MG TABLET PO PRN (20:38)
[2021-11-06 04:32] VITALS: BP 108/64
[2021-11-06] MEDS: LINACLOTIDE 72 MCG CAPSULE PO SCH (05:57)
[2021-11-06 07:08] LABS: CREATININE 5.25 mg/dL (0.60-1.30)
[2021-11-06] MEDS: OXYGEN THERAPY IH SCH ×2 (08:00→20:00)
[2021-11-06 08:11] VITALS: BP 112/64
[2021-11-06] MEDS: DiphenhydrAMINE HCL 25 MG/10 ML SOLUTION UDCUP PO SCH ×4 (08:38→20:51)
[2021-11-06] MEDS: TAMSULOSIN HCL 0.4 MG CAPSULE PO SCH ×2 (08:43→20:47)
[2021-11-06] MEDS: FAMOTIDINE 20 MG TABLET PO SCH ×2 (08:44→20:47)
[2021-11-06] MEDS: FOLIC ACID 0.4 MG TABLET PO SCH (08:44)
[2021-11-06] MEDS: CETIRIZINE HCL 10 MG TABLET PO SCH (08:44)
[2021-11-06] MEDS: CITRIC ACID/SODIUM CITRATE 30 ML SOLUTION UDCUP PO SCH ×2 (08:44→20:47)
[2021-11-06 15:49] VITALS: BP 108/56
[2021-11-06 19:30] VITALS: BP 129/78
[2021-11-06] MEDS: ACETAMINOPHEN 325 MG TABLET PO PRN (22:35)
[2021-11-07 03:50] VITALS: BP 103/59
[2021-11-07] MEDS: LINACLOTIDE 72 MCG CAPSULE PO SCH ×2 (05:59→08:40)
[2021-11-07 08:00] VITALS: BP 109/52
[2021-11-07] MEDS: CITRIC ACID/SODIUM CITRATE 30 ML SOLUTION UDCUP PO SCH ×2 (08:40→20:09)
[2021-11-07] MEDS: FOLIC ACID 0.4 MG TABLET PO SCH (08:40)
[2021-11-07] MEDS: DiphenhydrAMINE HCL 25 MG/10 ML SOLUTION UDCUP PO SCH ×5 (08:40→20:38)
[2021-11-07] MEDS: FAMOTIDINE 20 MG TABLET PO SCH ×2 (08:40→20:08)
[2021-11-07] MEDS: TAMSULOSIN HCL 0.4 MG CAPSULE PO SCH ×2 (08:40→20:08)
[2021-11-07] MEDS: OXYGEN THERAPY IH SCH (08:40)
[2021-11-07] MEDS: CETIRIZINE HCL 10 MG TABLET PO SCH (08:40)
[2021-11-07] MEDS ORDERED: DEXTROSE 5%-0.45% SODIUM CHL 1,000 ML IV SCH (11:00)
[2021-11-07 13:10] LABS: BILIRUBIN,DIRECT 1.5 mg/dL (0.00-0.20); BILIRUBIN,TOTAL 1.8 mg/dL (0.1-1.0); C-REACTIVE PROTEIN QUANT 2.09 mg/dL (0.00-0.30); CALCIUM, TOTAL 9.2 mg/dL (8.8-10.5); CREATININE 5.15 mg/dL (0.60-1.30); POTASSIUM 4.6 mmol/L (3.5-5.1)
[2021-11-07 15:34] VITALS: BP 95/54
[2021-11-08] MEDS ORDERED: SODIUM ZIRCONIUM CYCLOSILICATE 5 GM POWDER PACKET PO SCH (09:00)
[2021-11-09 05:06] LABS: HEPATITIS C AB (EIA) <0.1 s/co ratio (0.0-0.9)
== END 2021-11-07 23:33 | disposition short-term general hospital (02) | DRG 444 ==
LOC: EMS 12:19 → 6N 10-19 14:11
PROVIDERS: ADMIT Hospitalist; ATTEND Hospitalist
PROC: 0TB03ZX Excision of Right Kidney, Percutaneous Approach, Diagnostic (ICD-10-PCS; 2021-10-19)
PROC: 0FB78ZX Excision of Common Hepatic Duct, Via Natural or Artificial Opening Endoscopic, Diagnostic (ICD-10-PCS; principal; 2021-10-19 15:00)
PROC: 30233N1 Transfusion of Nonautologous Red Blood Cells into Peripheral Vein, Percutaneous Approach (ICD-10-PCS; 2021-11-02)
DX: K83.9 Disease of biliary tract, unspecified (principal); K85.90 Acute pancreatitis without necrosis or infection, unspecified; N17.0 Acute kidney failure with tubular necrosis; E87.0 Hyperosmolality and hypernatremia; N39.0 Urinary tract infection, site not specified; I13.0 Hypertensive heart and chronic kidney disease with heart failure and stage 1 through stage 4 chronic kidney disease, or unspecified chronic kidney disease; K80.21 Calculus of gallbladder without cholecystitis with obstruction; Z20.822 Contact with and (suspected) exposure to COVID-19; N40.0 Benign prostatic hyperplasia without lower urinary tract symptoms; G47.00 Insomnia, unspecified; L29.9 Pruritus, unspecified; E80.6 Other disorders of bilirubin metabolism; E87.5 Hyperkalemia; I50.9 Heart failure, unspecified; K72.90 Hepatic failure, unspecified without coma; D64.9 Anemia, unspecified; N18.9 Chronic kidney disease, unspecified; B19.20 Unspecified viral hepatitis C without hepatic coma; Z79.899 Other long term (current) drug therapy; Z90.49 Acquired absence of other specified parts of digestive tract
CPT/HCPCS: 50200; 71045; 74176; 74181; 76700; 80048; 80053; 80074; 81001; 82140; 82247; 82248; 82570; 83690; 83735; 84100; 84156; 84300; 84540; 85025; 85610; 85730; 86140; 86850; 86900; 86901; 86923; 87081; 87086; 88300; 88305; 93005; 99285; C9113; G0378; J0171; J0330; J0885; J1100; J1644; J2250; J2270; J2310; J2405; J2543; J2704; J3010; J3490; J7030; J7050; P9016; P9046; Q9961; Q9967; 36415-L1; 36415-TC